=== PATIENT | female | born 1965 | race Caucasian/White ===

== ENCOUNTER 2022-06-30 11:37 | Emergency (ER) | payer OTHER ==
[~2022-06-30] VITALS: Ht 165.1 cm; Wt 82.6 kg
[2022-06-30] MEDS ORDERED: EFFEXOR XR150 MG PO (12:15)
[2022-06-30] MEDS ORDERED: ARMOUR THYROID60 MG PO (12:15)
[2022-06-30] MEDS ORDERED: IMITREX100 MG PO (12:15)
[2022-06-30] MEDS ORDERED: PROGESTERONE100 MG (12:15)
[2022-06-30] MEDS ORDERED: SODIUM CHLORIDE 0.9% 1000ML 1,000 ML IV ONE (13:00)
[2022-06-30] MEDS ORDERED: LORAZEPAM 0.5 MG TAB ONE (13:14)
[2022-06-30] MEDS ORDERED: LORAZEPAM 1 MG TAB PO ONE (13:15)
[2022-06-30] MEDS ORDERED: METOPROLOL SUCC50 MG PO (14:47)
== END 2022-06-30 15:06 | disposition home or self-care (01) ==
LOC: FSED 11:41 → MERGE 11:41 → FSED 15:06
DX: R50.9 Fever, unspecified (principal); S01.01XA Laceration without foreign body of scalp, initial encounter; W01.0XXA Fall on same level from slipping, tripping and stumbling without subsequent striking against object, initial encounter; Y92.89 Other specified places as the place of occurrence of the external cause; R03.0 Elevated blood-pressure reading, without diagnosis of hypertension; R00.0 Tachycardia, unspecified; T43.615A Adverse effect of caffeine, initial encounter; F43.9 Reaction to severe stress, unspecified; E03.9 Hypothyroidism, unspecified; F32.A Depression, unspecified; F41.9 Anxiety disorder, unspecified; R94.31 Abnormal electrocardiogram [ECG] [EKG]
CPT/HCPCS: 70450; 71046; 80053; 80307; 81003; 82553; 84484; 85025; 93005; 99284